=== PATIENT | male | born 1935 | race Caucasian/White ===

== ENCOUNTER 2018-09-01 20:48 | Emergency (ER) | payer MEDICARE, OTHER ==
[~2018-09-01] VITALS: Ht 172.7 cm; Wt 82.0 kg
[2018-09-01] MEDS ORDERED: DIPH,PERTUSS(ACELL),TET VAC/PF 0.5 ML IM-VACC ONE ×2 (21:49→22:00)
--- NOTE | 2018-09-01 22:09 | NUR ---
TETANUS SHOT GIVEN TECH AT BEDSIDE BANDAGING ABRASIONS
[2018-09-01 22:25] VITALS: BP 101/64
--- NOTE | 2018-09-01 22:50 | NUR ---
Patient given discharge instructions and they have confirmed that they understand the instructions. Patient ambulatory with steady gait.
== END 2018-09-01 22:53 | disposition home or self-care (01) ==
LOC: ED 22:34
DX: S51.011A Laceration without foreign body of right elbow, initial encounter (principal); S51.012A Laceration without foreign body of left elbow, initial encounter; S61.411A Laceration without foreign body of right hand, initial encounter; S61.412A Laceration without foreign body of left hand, initial encounter; S01.20XA Unspecified open wound of nose, initial encounter; I10 Essential (primary) hypertension; E11.9 Type 2 diabetes mellitus without complications; W18.09XA Striking against other object with subsequent fall, initial encounter; Y93.89 Activity, other specified; Y92.488 Other paved roadways as the place of occurrence of the external cause; Y99.8 Other external cause status
CPT/HCPCS: 90471; 90715